=== PATIENT | male | born 1945 | race Caucasian/White ===

== ENCOUNTER 2018-02-28 19:31 | Emergency (ER) | payer OTHER ==
[2018-02-28 19:56] VITALS: TEMP 98.5; O2SAT 99
[2018-02-28] MEDS ORDERED: Lidocaine Hydrochloride 5 ML INJ ONE (20:12)
--- NOTE | 2018-02-28 20:29 | C.PDOC ---
History Of Present Illness 72 year old male with PMHx of pacemaker surgery presents to the ED for evaluation of a skin lump over his pacemaker area. Patient states he noticed a small lump started developing over the surgical area of his pacemaker for the past 2 days. Patient reports he had his pacemaker surgery done 2 years ago. Patient currently taking various cardiac medications. Patient denies fever, chill, nausea, vomit, diarrhea, CP, SOB. Chief Complaint (Nursing): Abnormal Skin Integrity History Per: Patient History/Exam Limitations: no limitations Onset/Duration Of Symptoms: Days Current Symptoms Are (Timing): Still Present Location Of Injury: Left: Chest Quality Of Symptoms: Swollen Severity: None Recent travel outside of the [place]: No Additional History Per: Patient Past Medical History Reviewed: Historical Data, Nursing Documentation, Vital Signs Vital Signs: Last Vital Signs Temp 98.5 F 02/28/18 19:53 Pulse 81 02/28/18 19:53 Resp 18 02/28/18 19:53 BP 121/76 02/28/18 19:53 Pulse Ox 99 02/28/18 20:46 - Medical History PMH: Cardia Arrhythmia Denies: Chronic Kidney Disease Surgical History: Coronary Stent, Pacemaker Family History: States: Unknown Family Hx - Social History Hx Alcohol Use: No Hx Substance Use: No - Immunization History Hx Tetanus Toxoid Vaccination: No Hx Influenza Vaccination: No Hx Pneumococcal Vaccination: No Review Of Systems Constitutional: Negative for: Fever, Chills Cardiovascular: Negative for: Chest Pain, Palpitations Respiratory: Negative for: Cough, Shortness of Breath Gastrointestinal: Negative for: Nausea, Vomiting Skin: Positive for: Rash Neurological: Negative for: Weakness, Numbness Physical Exam - Physical Exam Appears: Non-toxic, No Acute Distress Skin: Normal Color, Warm, Dry Head: Atraumatic, Normacephalic Eye(s): bilateral: Normal Inspection Oral Mucosa: Moist Neck: Normal ROM, Supple Chest: Symmetrical, Other (1 cm diameter pustule fluctuant and tender with surrounding erythema) Cardiovascular: Rhythm Regular Respiratory: Normal Breath Sounds, No Rales, No Rhonchi, No Wheezing Gastrointestinal/Abdominal: Soft, No Tenderness, No Guarding, No Rebound Extremity: Normal ROM, No Tenderness, No Swelling Neurological/Psych: Oriented x3, Normal Speech Gait: Steady ED Course And Treatment O2 Sat by Pulse Oximetry: 99 (ON RA) Pulse Ox Interpretation: Normal - Incision & Drainage Of Abscess Anesthesia: Lidocaine 1% (2cc) Used During Procedure: Continuous Pulse Oximetry Prep Used: Betadine Procedure: Incised W/Scalpel Blade#:, Drained Pus (3cc), Irrigated Cavity W/ Saline, Packed W/Gauze, Cultures Obtained And Sent To Lab Medical Decision Making Medical Decision Making: Impression: lump over surgical scar Plan: * Doryx 100 mg PO * Wound culture 2 cc lidocaine injected over fluctuant area, incision was made with a superficial incision. Small purulent material approximately 3 cc, wound was irrigated woith betadine. Packed with 1 inch of sterile packing, dressing was applied over the open area. Patient was instructed to remove packing in 2 days and was placed on antibiotics. Disposition - Disposition Referrals: [facility] [Outside] Disposition: HOME/ ROUTINE Disposition Time: 20:27 Condition: GOOD Prescriptions: Doxycycline Monohydrate 100 mg PO BID #14 tablet Instructions: Skin Abscess, Abscess Incision and Drainage Forms: UNATION (Greenlandic) Print Language: ESTONIAN - POA Location Of Wound: chest wall - Clinical Impression Clinical Impression: Abscess - Scribe Statement The provider has reviewed the documentation as recorded by the Scribe Nehemias Albert All medical record entries made by the Scribe were at my direction and personally dictated by me. I have reviewed the chart and agree that the record accurately reflects my personal performance of the history, physical exam, medical decision making, and the department course for this patient. I have also personally directed, reviewed, and agree with the discharge instructions and disposition.
[2018-02-28 20:53] VITALS: BP 122/69; PULSE 84; RESP 20
== END 2018-02-28 20:50 | disposition home or self-care (01) ==
LOC: C.ER 19:31
DX: T81.4XXA Infection following a procedure, initial encounter (principal); L02.213 Cutaneous abscess of chest wall